=== PATIENT | female | born 1970 | race Caucasian/White ===

== ENCOUNTER → 2021-01-12 | Outpatient (CLI) | payer OTHER | LOC: PET 08:00 | PROVIDERS: ATTEND Obstetrics & Gynecology Gynecologic Oncology | DX: C51.9 Malignant neoplasm of vulva, unspecified (principal) | CPT/HCPCS: 78815; A9552 ==

== ENCOUNTER → 2021-01-30 | Day surgery (SDC) | payer OTHER | LOC: SPEC 12:54 | PROVIDERS: ATTEND Nurse Practitioner Family | PROC: 02HV33Z Insertion of Infusion Device into Superior Vena Cava, Percutaneous Approach (ICD-10-PCS; principal; 2021-01-30) | DX: C51.0 Malignant neoplasm of labium majus (principal) | CPT/HCPCS: 36569; C1751 ==

== ENCOUNTER 2021-07-06 11:00 | Outpatient (CLI) | payer OTHER | END 2021-07-06 11:01 | disposition home or self-care (01) | LOC: PET 11:00 | PROVIDERS: ATTEND Obstetrics & Gynecology Gynecologic Oncology | DX: C51.0 Malignant neoplasm of labium majus (principal); C77.8 Secondary and unspecified malignant neoplasm of lymph nodes of multiple regions | CPT/HCPCS: 78815; A9552 ==

== ENCOUNTER 2021-09-06 10:45 | Inpatient (IN) | payer OTHER ==
[2021-09-06] MEDS ORDERED: Iopamidol-370 76% 500 ML 1 ML ONE (11:14)
[2021-09-06] MEDS ORDERED: Morphine 4 MG/ML VIAL ONE (11:49)
[2021-09-06] MEDS ORDERED: Piperacillin/Tazobactam 3.375 GM VIAL ONE (11:50)
[2021-09-06 12:00] LABS: #Lymphocytes 0.5 thou/uL (1.20-3.40); #Monocytes 0.1 thou/uL (0.11-0.59); #Neutrophils 8.5 thou/uL (1.40-6.50); %Eosinophils 0.2 % (0.0-10.0); %Monocytes 1.1 % (0.0-10.0); %Neutrophils 93.7 % (42.0-75.0); Hemoglobin 9.2 g/dL (12.0-16.0); Mean Corpuscular HGB CONC 32.6 g/dL (32.0-36.0); Mean Corpuscular Hemoglobin 27.2 pg (27.0-31.0); Mean Corpuscular Volume 83.2 fL (78.0-98.0); Mean Platelet Volume 7.6 fL (7.4-10.4); Platelet Count 273 thou/uL (130-400); RBC Distribution Width 18.1 % (11.5-14.5); Red Blood Cell (RBC) Count 3.38 mill/uL (4.20-5.40); White Blood Cell (WBC) Count 9.1 thou/uL (4.8-10.8)
[2021-09-06] MEDS ORDERED: METRONIDAZOLE IVPB SCH (12:15)
[2021-09-06 12:22] LABS: ALT (SGPT) 8 U/L (8-55); AST (SGOT) 11 U/L (5-34); Albumin 3.5 g/dL (3.5-5.0); Alkaline Phosphatase 67 U/L (40-110); Anion Gap 18 mmol/L (10-20); BUN (Urea Nitrogen) 31 mg/dL (9.8-20.1); Bilirubin, Total 0.6 mg/dL (0.2-1.2); CK (CPK) 25 U/L (29-168); Calc. Creatinine Clearance 0 mL/min (70-130); Calcium 9.3 mg/dL (7.8-10.44); Carbon Dioxide 22 mmol/L (22-29); Chloride 103 mmol/L (98-107); Estimated GFR 75; Globulin 4.3 g/dL (2.4-3.5); Glucose 136 mg/dL (70-105); Lipase 64 U/L (8-78); Potassium 3.8 mmol/L (3.5-5.1); Protein, Total 7.8 g/dL (6.0-8.3); Sodium 139 mmol/L (136-145)
[2021-09-06] MEDS ORDERED: metroNIDAZOLE 500 MG in Premix Bag 1 BAG IVPB SCH (13:45)
[2021-09-06 15:41] LABS: Bacteria/HPF None Seen HPF (None Seen); Bilirubin Negative (Negative); Blood, Urine Negative (Negative); Clarity Clear (Clear); Glucose, Urine (Dipstick) Normal (Negative); Ketone, Urine Negative (Negative); Leukocyte 500 Leu/uL (Negative); Nitrite Negative (Negative); Protein, Urine (Dipstick) Negative (Neg-Trace); RBC/HPF 0-3 HPF (0-3); Specific Gravity, Urine 1.023 (1.002-1.036); Squamous Epithelial 0-3 HPF (0-3); Urobilinogen Normal mg/dL (Less than 2); pH, Urine 5.5 (5.0-9.0)
[2021-09-06] MEDS ORDERED: Dextrose 50% Abboject 50 ML SYRINGE SLOW IVP PRN (16:46)
[2021-09-06] MEDS ORDERED: HumaLOG 300 UNITS/3 ML VIAL SC PRN ×3 (16:46→21:02)
[2021-09-06] MEDS ORDERED: Dextrose 5% in Water 1,000 ML IV PRN ×2 (16:46→21:01)
[2021-09-06] MEDS ORDERED: Senokot S 8.6-50 MG TAB PO PRN (16:48)
[2021-09-06] MEDS ORDERED: Ondansetron PF 4 MG/2 ML Vial IVP PRN ×2 (16:48→21:02)
[2021-09-06] MEDS ORDERED: HYDROcodone/Acetaminophen 5/325 mg Tablet PO PRN (16:48)
[2021-09-06] MEDS ORDERED: Ondansetron ODT 4 MG TAB PO PRN ×2 (16:48→21:02)
[2021-09-06] MEDS ORDERED: cefTRIAXone\\ROCEPHIN 2 GM in Sodium Chloride 0.9% 100 ML IVPB SCH (18:00)
[2021-09-06] MEDS: Sodium Chloride 0.9% 1,000 ML IV SCH (18:50)
[2021-09-06 19:05] VITALS: BMI 32.8
[2021-09-06] MEDS ORDERED: Vancomycin 1 GM in Premix Bag 1 BAG IVPB SCH (21:00)
[2021-09-06] MEDS ORDERED: Famotidine 20 MG TAB PO SCH (21:00)
[2021-09-06] MEDS: cefTRIAXone\\ROCEPHIN 2 GM in Sodium Chloride 0.9% 100 ML IVPB SCH (21:27)
[2021-09-06] MEDS: Vancomycin 1.5 GRAM/300 ML BAG 1.5 GM in Premix Bag 300 BAG IVPB SCH (21:30)
[2021-09-06] MEDS: Famotidine 20 MG TAB PO SCH (21:31)
[2021-09-07] MEDS: HYDROcodone/Acetaminophen 5/325 mg Tablet PO PRN ×3 (02:09→20:31)
[2021-09-07 03:07] LABS: SARS-CoV-2 NAA Rapid Test Not Detected (NotDetected)
[2021-09-07] MEDS: Sodium Chloride 0.9% 1,000 ML IV SCH ×3 (04:32→15:25)
[2021-09-07] MEDS: HumaLOG 300 UNITS/3 ML VIAL SC PRN ×2 (05:58→12:23)
[2021-09-07] MEDS: Famotidine 20 MG TAB PO SCH ×2 (08:29→20:30)
[2021-09-07] MEDS ORDERED: Famotidine 20 MG TAB PO SCH (09:00)
[2021-09-07] MEDS: Vancomycin 1.5 GRAM/300 ML BAG 1.5 GM in Premix Bag 300 BAG IVPB SCH ×2 (09:18→20:41)
[2021-09-07] MEDS ORDERED: Propofol 500 MG/50 ML VIAL ONE (15:07)
[2021-09-07] MEDS ORDERED: fentaNYL Citrate/PF 100 MCG/2 ML SYRINGE ONE (15:20)
[2021-09-07] MEDS ORDERED: Phenylephrine 10 MG/ML VIAL ONE (15:20)
[2021-09-07] MEDS ORDERED: CEFAZOLIN 2 GM VIAL ONE (15:40)
[2021-09-07] MEDS ORDERED: Sodium Chloride 0.9% 100 ML ONE (15:40)
[2021-09-07] MEDS ORDERED: Lidocaine 1% PF 5 ML VIAL ONE (15:51)
[2021-09-07] MEDS ORDERED: Succinylcholine 200 MG/10 ml SYRINGE FS ONE (15:51)
[2021-09-07] MEDS ORDERED: PROPOFOL 200 MG/20 ML VIAL ONE (15:51)
[2021-09-07] MEDS ORDERED: Ondansetron PF 4 MG/2 ML Vial ONE (15:51)
[2021-09-07] MEDS ORDERED: Lidocaine 1% w/Epinephrine 1:100K 20 ML VIAL ONE (16:07)
[2021-09-07] MEDS ORDERED: Bupivacaine 0.25% HCL 30 ML VIAL ONE (16:07)
[2021-09-07] MEDS ORDERED: Fentanyl 100 MCG/2 ML VIAL ONE (16:36)
[2021-09-07] MEDS: cefTRIAXone\\ROCEPHIN 2 GM in Sodium Chloride 0.9% 100 ML IVPB SCH (20:32)
[2021-09-08] MEDS: HYDROcodone/Acetaminophen 5/325 mg Tablet PO PRN ×3 (00:34→09:24)
[2021-09-08 06:56] LABS: #Eosinphils 0.1 thou/uL (0.0-0.7); #Lymphocytes 0.4 thou/uL (1.20-3.40); #Monocytes 0.1 thou/uL (0.11-0.59); #Neutrophils 4.5 thou/uL (1.40-6.50); %Eosinophils 1.4 % (0.0-10.0); %Lymphocytes 8.3 % (21.0-51.0); %Monocytes 1.3 % (0.0-10.0); Hemoglobin 7.5 g/dL (12.0-16.0); Mean Corpuscular HGB CONC 31.9 g/dL (32.0-36.0); Mean Corpuscular Hemoglobin 26.9 pg (27.0-31.0); Mean Corpuscular Volume 84.4 fL (78.0-98.0); Mean Platelet Volume 7.3 fL (7.4-10.4); Platelet Count 193 thou/uL (130-400); RBC Distribution Width 18.1 % (11.5-14.5); Red Blood Cell (RBC) Count 2.79 mill/uL (4.20-5.40); White Blood Cell (WBC) Count 5.1 thou/uL (4.8-10.8)
[2021-09-08 06:57] LABS: Hemoglobin A1c 7.1 % (4.0-6.0)
[2021-09-08 07:11] LABS: Anion Gap 12 mmol/L (10-20); BUN (Urea Nitrogen) 16 mg/dL (9.8-20.1); Calc. Creatinine Clearance 133 mL/min (70-130); Calcium 8.6 mg/dL (7.8-10.44); Carbon Dioxide 24 mmol/L (22-29); Chloride 104 mmol/L (98-107); Estimated GFR 87; Glucose 177 mg/dL (70-105); Magnesium 1.3 mg/dL (1.6-2.6); Phosphorus 2.5 mg/dL (2.3-4.7); Potassium 3.9 mmol/L (3.5-5.1); Sodium 136 mmol/L (136-145)
[2021-09-08 07:14] LABS: Vancomycin, Trough 19.2 ug/mL
[2021-09-08] MEDS ORDERED: Lisinopril/Hydrochlorothiazide 10 mg/12.5 mg Tablet PO SCH (09:00)
[2021-09-08] MEDS: Vancomycin 1.5 GRAM/300 ML BAG 1.5 GM in Premix Bag 300 BAG IVPB SCH (09:25)
[2021-09-08] MEDS: Famotidine 20 MG TAB PO SCH (09:28)
[2021-09-08 11:49] VITALS: BP 137/85; TEMP 98.8
[2021-09-08 13:32] LABS: Hemoglobin 7.8 g/dL (12.0-16.0)
== END 2021-09-08 15:35 | disposition home or self-care (01) | DRG 572 ==
LOC: ERS 10:45 → SURG B 17:23 → ERS 18:11
PROVIDERS: ADMIT Internal Medicine; ATTEND Internal Medicine
PROC: 0JBL0ZZ Excision of Right Upper Leg Subcutaneous Tissue and Fascia, Open Approach (ICD-10-PCS; principal; 2021-09-07)
DX: L02.214 Cutaneous abscess of groin (principal); Z20.822 Contact with and (suspected) exposure to COVID-19; L03.314 Cellulitis of groin; C51.9 Malignant neoplasm of vulva, unspecified; I10 Essential (primary) hypertension; E11.9 Type 2 diabetes mellitus without complications; D63.8 Anemia in other chronic diseases classified elsewhere; D64.81 Anemia due to antineoplastic chemotherapy; T45.1X5A Adverse effect of antineoplastic and immunosuppressive drugs, initial encounter; E83.42 Hypomagnesemia; E83.39 Other disorders of phosphorus metabolism; E87.6 Hypokalemia; E66.01 Morbid (severe) obesity due to excess calories; F32.A Depression, unspecified; Z79.899 Other long term (current) drug therapy; Z79.4 Long term (current) use of insulin; Z82.49 Family history of ischemic heart disease and other diseases of the circulatory system; Z84.1 Family history of disorders of kidney and ureter; Z80.6 Family history of leukemia; Z68.32 Body mass index [BMI] 32.0-32.9, adult
CPT/HCPCS: 36415; 36416; 74177; 80048; 80053; 80202; 81003; 81015; 82550; 83036; 83605; 83690; 83735; 84100; 85025; 87040; 87070; 87076; 87086; 87205; 96365; 96367; 96375; J0690; J0696; J1642; J1815; J2270; J2370; J2405; J2543; J2704; J3010; J3370; J3490; J7050; Q9967; S0020; U0002

== ENCOUNTER 2021-09-14 08:45 | Outpatient (CLI) | payer OTHER | END 2021-09-14 08:46 | disposition home or self-care (01) | LOC: PET 08:45 | PROVIDERS: ATTEND Obstetrics & Gynecology Gynecologic Oncology | DX: C51.9 Malignant neoplasm of vulva, unspecified (principal); C77.8 Secondary and unspecified malignant neoplasm of lymph nodes of multiple regions | CPT/HCPCS: 78815; A9552 ==

== ENCOUNTER 2021-10-20 16:38 | Emergency (ER) | payer OTHER ==
[~2021-10-20 16:38] MED LIST: Iopamidol-370 76% 500 ML 1 ML ONE
[2021-10-20] MEDS ORDERED: Morphine 2 MG/ML VIAL ONE ×2 (17:10→19:00)
[2021-10-20] MEDS ORDERED: Morphine 4 MG/ML VIAL ONE ×2 (17:10→19:00)
[2021-10-20] MEDS ORDERED: Ondansetron PF 4 MG/2 ML Vial ONE (17:34)
[2021-10-20 17:47] LABS: #Eosinphils 0.1 thou/uL (0.0-0.7); #Lymphocytes 0.5 thou/uL (1.20-3.40); #Monocytes 0.1 thou/uL (0.11-0.59); #Neutrophils 5.7 thou/uL (1.40-6.50); %Eosinophils 1.4 % (0.0-10.0); %Lymphocytes 7.6 % (21.0-51.0); %Monocytes 0.8 % (0.0-10.0); %Neutrophils 90.2 % (42.0-75.0); Hemoglobin 9.5 g/dL (12.0-16.0); Mean Corpuscular HGB CONC 34.1 g/dL (32.0-36.0); Platelet Count 268 thou/uL (130-400); RBC Distribution Width 16.6 % (11.5-14.5); Red Blood Cell (RBC) Count 3.29 mill/uL (4.20-5.40); White Blood Cell (WBC) Count 6.4 thou/uL (4.8-10.8)
[2021-10-20 18:05] LABS: ALT (SGPT) 7 U/L (8-55); AST (SGOT) 10 U/L (5-34); Albumin 3.6 g/dL (3.5-5.0); Alkaline Phosphatase 66 U/L (40-110); Anion Gap 16 mmol/L (10-20); BUN (Urea Nitrogen) 24 mg/dL (9.8-20.1); Bilirubin, Total 0.7 mg/dL (0.2-1.2); Calc. Creatinine Clearance 0 mL/min (70-130); Calcium 9.5 mg/dL (7.8-10.44); Carbon Dioxide 24 mmol/L (22-29); Chloride 97 mmol/L (98-107); Estimated GFR 63; Globulin 4.5 g/dL (2.4-3.5); Glucose 153 mg/dL (70-105); Potassium 3.6 mmol/L (3.5-5.1); Protein, Total 8.1 g/dL (6.0-8.3); Sodium 133 mmol/L (136-145)
[2021-10-20] MEDS ORDERED: Azithromycin 250 MG TAB ONE (19:00)
[2021-10-20] MEDS ORDERED: cefTRIAXone\\ROCEPHIN 1 GM VIAL ONE (19:00)
== END 2021-10-20 19:33 | disposition home or self-care (01) ==
LOC: ERS 16:38
DX: C52 Malignant neoplasm of vagina (principal); N89.8 Other specified noninflammatory disorders of vagina; E11.9 Type 2 diabetes mellitus without complications; I10 Essential (primary) hypertension; Z79.899 Other long term (current) drug therapy; Z79.4 Long term (current) use of insulin
CPT/HCPCS: 74177; 80053; 85025; 94760; 96374; 96375; 96376; J0696; J1642; J2270; J2405; Q9967

== ENCOUNTER 2021-10-22 00:52 | Emergency (ER) | payer OTHER | END 2021-10-22 01:42 | disposition left against medical advice (07) | LOC: ERS 00:52 | DX: Z53.21 Procedure and treatment not carried out due to patient leaving prior to being seen by health care provider (principal) ==

== ENCOUNTER 2022-01-05 10:10 | Inpatient (IN) | payer OTHER ==
[2022-01-05] MEDS ORDERED: Iopamidol-370 76% 500 ML 1 ML ONE (10:33)
[2022-01-05 10:44] LABS: Hemoglobin 6.6 g/dL (12.0-16.0); Mean Corpuscular Hemoglobin 23.9 pg (27.0-31.0); Red Blood Cell (RBC) Count 2.75 mill/uL (4.20-5.40); White Blood Cell (WBC) Count 14.2 thou/uL (4.8-10.8)
[2022-01-05 11:03] LABS: ALT (SGPT) 39 U/L (8-55); AST (SGOT) 37 U/L (5-34); Albumin 3.2 g/dL (3.5-5.0); Alkaline Phosphatase 229 U/L (40-110); Anion Gap 18 mmol/L (10-20); BUN (Urea Nitrogen) 15 mg/dL (9.8-20.1); Bilirubin, Total 1.3 mg/dL (0.2-1.2); Calc. Creatinine Clearance 0 mL/min (70-130); Calcium 10.3 mg/dL (7.8-10.44); Carbon Dioxide 23 mmol/L (22-29); Chloride 96 mmol/L (98-107); Estimated GFR 63; Globulin 6.1 g/dL (2.4-3.5); Glucose 217 mg/dL (70-105); Lipase 9 U/L (8-78); Potassium 4.5 mmol/L (3.5-5.1); Protein, Total 9.3 g/dL (6.0-8.3); Sodium 132 mmol/L (136-145)
[2022-01-05 11:48] LABS: #Eosinphils 0.1 thou/uL (0.0-0.7); #Lymphocytes 1.1 thou/uL (1.20-3.40); #Monocytes 0.9 thou/uL (0.11-0.59); #Neutrophils 12.1 thou/uL (1.40-6.50); %Basophils 0.3 % (0.0-1.0); %Eosinophils 0.5 % (0.0-10.0); %Lymphocytes 7.5 % (21.0-51.0); %Monocytes 6.3 % (0.0-10.0); %Neutrophils 85.4 % (42.0-75.0); Hypochromia SLIGHT = 6-15 cells (100X) (0-5/hpf); MDiff Complete? YES; Mean Corpuscular HGB CONC 29.2 g/dL (32.0-36.0); Mean Platelet Volume 6.4 fL (7.4-10.4); Platelet Count 593 thou/uL (130-400); Platelet Morphology Comment Appears Increased; RBC Distribution Width 18.9 % (11.5-14.5); Target Cells SLIGHT = 2-5 cells (100X) (0-1/hpf)
[2022-01-05] MEDS ORDERED: Ondansetron PF 4 MG/2 ML Vial ONE (12:13)
[2022-01-05] MEDS ORDERED: Morphine 4 MG/ML VIAL ONE (12:13)
[2022-01-05] MEDS ORDERED: Cefepime 2 GM VIAL ONE (13:34)
[2022-01-05] MEDS ORDERED: Vancomycin 1 GM/200 ML BAG ONE (13:35)
[2022-01-05 14:33] LABS: Bilirubin Negative (Negative); Blood, Urine Negative (Negative); Clarity Clear (Clear); Glucose, Urine (Dipstick) Normal (Negative); Ketone, Urine Negative (Negative); Leukocyte Negative Leu/uL (Negative); Nitrite Negative (Negative); Protein, Urine (Dipstick) 10 mg/dL (Neg-Trace); Specific Gravity, Urine 1.043 (1.002-1.036); Urobilinogen Normal mg/dL (Less than 2)
[2022-01-05 15:05] LABS: SARS-CoV-2 NAA Rapid Test Not Detected (NotDetected)
[2022-01-05] MEDS ORDERED: Ondansetron ODT 4 MG TAB SL PRN (15:30)
[2022-01-05] MEDS ORDERED: Ondansetron PF 4 MG/2 ML Vial IVP PRN (15:30)
[2022-01-05] MEDS ORDERED: Dextrose 50% Abboject 50 ML SYRINGE SLOW IVP PRN (15:58)
[2022-01-05] MEDS ORDERED: Insulin Regular 300 UNITS/3 ML VIAL SC PRN (15:58)
[2022-01-05] MEDS ORDERED: Acetaminophen 325 MG TAB PO PRN (15:58)
[2022-01-05] MEDS ORDERED: Acetaminophen 650 MG Suppository PR PRN (15:58)
[2022-01-05] MEDS ORDERED: Dextrose 5% in Water 1,000 ML IV PRN (15:58)
[2022-01-05 16:08] VITALS: BMI 28.7
[2022-01-05] MEDS ORDERED: Vancomycin 1 GM in Premix Bag 1 BAG IVPB SCH (16:30)
[2022-01-05] MEDS: Sodium Chloride 0.9% 1,000 ML IV SCH (17:00)
[2022-01-05] MEDS: Insulin Glargine 30 UNITS/0.3 ML VIAL SC SCH (20:57)
[2022-01-05] MEDS: Morphine 4 MG/ML VIAL SLOW IVP PRN (21:06)
[2022-01-05 21:33] LABS: Hemoglobin 6.5 g/dL (12.0-16.0)
[2022-01-05 23:16] LABS: Hemoglobin 6.4 g/dL (12.0-16.0); Platelet Count 474 thou/uL (130-400)
[2022-01-06] MEDS: Cefepime 2 GM in Sodium Chloride 0.9% 100 ML IVPB SCH ×2 (02:14→13:30)
[2022-01-06] MEDS: VANCOMYCIN 1.25 GM/250 ML BAG 1.25 GM in Premix Bag 1 BAG IVPB SCH ×2 (03:21→15:11)
[2022-01-06 06:23] LABS: #Eosinphils 0.1 thou/uL (0.0-0.7); #Lymphocytes 0.6 thou/uL (1.20-3.40); #Monocytes 0.8 thou/uL (0.11-0.59); #Neutrophils 11.5 thou/uL (1.40-6.50); %Basophils 0.1 % (0.0-1.0); %Eosinophils 0.6 % (0.0-10.0); %Monocytes 5.8 % (0.0-10.0); %Neutrophils 88.5 % (42.0-75.0); Hemoglobin 7.7 g/dL (12.0-16.0); Mean Corpuscular HGB CONC 30.9 g/dL (32.0-36.0); Mean Corpuscular Hemoglobin 26.1 pg (27.0-31.0); Mean Corpuscular Volume 84.3 fl (78.0-98.0); Mean Platelet Volume 6.4 fL (7.4-10.4); Platelet Count 528 thou/uL (130-400); RBC Distribution Width 17.6 % (11.5-14.5); Red Blood Cell (RBC) Count 2.94 mill/uL (4.20-5.40)
[2022-01-06 06:46] LABS: Anion Gap 13 mmol/L (10-20); BUN (Urea Nitrogen) 11 mg/dL (9.8-20.1); Calc. Creatinine Clearance 112 mL/min (70-130); Carbon Dioxide 21 mmol/L (22-29); Chloride 102 mmol/L (98-107); Estimated GFR 84; Glucose 182 mg/dL (70-105); Potassium 4.4 mmol/L (3.5-5.1); Sodium 132 mmol/L (136-145)
[2022-01-06 08:32] LABS: Hemoglobin 7.7 g/dL (12.0-16.0)
[2022-01-06] MEDS: Morphine 4 MG/ML VIAL SLOW IVP PRN ×3 (08:36→20:07)
[2022-01-06] MEDS: Enoxaparin Sodium 40 MG/0.4 ML SYRINGE SC SCH (08:36)
[2022-01-06] MEDS: Sodium Chloride 0.9% 1,000 ML IV SCH ×3 (08:37→23:12)
[2022-01-06] MEDS ORDERED: FLU VACC QS2022-23(6MOS UP)/PF 60 MCG/0.5 ML SYRINGE IM ONE (09:00)
[2022-01-06] MEDS ORDERED: Prevnar 13-Val Conj/PF 0.5 ML SYRINGE IM ONE (09:00)
[2022-01-06] MEDS: Insulin Glargine 30 UNITS/0.3 ML VIAL SC SCH (20:07)
[2022-01-07] MEDS: Morphine 4 MG/ML VIAL SLOW IVP PRN ×3 (01:56→21:27)
[2022-01-07] MEDS: Cefepime 2 GM in Sodium Chloride 0.9% 100 ML IVPB SCH (01:57)
[2022-01-07] MEDS: Sodium Chloride 0.9% 1,000 ML IV SCH (01:57)
[2022-01-07] MEDS ORDERED: Morphine 4 MG/ML VIAL SLOW IVP SCH (02:45)
[2022-01-07 02:56] LABS: #Eosinphils 0.1 thou/uL (0.0-0.7); #Lymphocytes 0.6 thou/uL (1.20-3.40); #Monocytes 0.8 thou/uL (0.11-0.59); #Neutrophils 10.1 thou/uL (1.40-6.50); %Lymphocytes 5.5 % (21.0-51.0); %Monocytes 6.9 % (0.0-10.0); %Neutrophils 86.5 % (42.0-75.0); Hemoglobin 6.3 g/dL (12.0-16.0); Mean Corpuscular HGB CONC 29.8 g/dL (32.0-36.0); Mean Corpuscular Hemoglobin 24.9 pg (27.0-31.0); Mean Corpuscular Volume 83.6 fl (78.0-98.0); Mean Platelet Volume 6.3 fL (7.4-10.4); Platelet Count 403 thou/uL (130-400); RBC Distribution Width 17.6 % (11.5-14.5); Red Blood Cell (RBC) Count 2.54 mill/uL (4.20-5.40); White Blood Cell (WBC) Count 11.6 thou/uL (4.8-10.8)
[2022-01-07 03:07] LABS: Vancomycin, Trough 17.2 ug/mL
[2022-01-07 03:21] LABS: Anion Gap 13 mmol/L (10-20); BUN (Urea Nitrogen) 10 mg/dL (9.8-20.1); Calc. Creatinine Clearance 122 mL/min (70-130); Calcium 8.7 mg/dL (7.8-10.44); Carbon Dioxide 19 mmol/L (22-29); Chloride 104 mmol/L (98-107); Estimated GFR 93; Glucose 160 mg/dL (70-105); Potassium 4.1 mmol/L (3.5-5.1); Sodium 132 mmol/L (136-145)
[2022-01-07] MEDS: VANCOMYCIN 1.25 GM/250 ML BAG 1.25 GM in Premix Bag 1 BAG IVPB SCH (03:33)
[2022-01-07] MEDS: Enoxaparin Sodium 40 MG/0.4 ML SYRINGE SC SCH (09:15)
[2022-01-07] MEDS ORDERED: HYDROcodone/Acetaminophen 5/325 mg Tablet PO PRN (10:01)
[2022-01-07] MEDS: Insulin Regular 300 UNITS/3 ML VIAL SC PRN (12:27)
[2022-01-07] MEDS: HYDROcodone/Acetaminophen 5/325 mg Tablet PO PRN ×2 (16:35→23:56)
[2022-01-07] MEDS: Insulin Glargine 30 UNITS/0.3 ML VIAL SC SCH (21:24)
[2022-01-08] MEDS: HYDROcodone/Acetaminophen 5/325 mg Tablet PO PRN ×3 (06:27→18:16)
[2022-01-08 06:46] LABS: Anion Gap 12 mmol/L (10-20); BUN (Urea Nitrogen) 8 mg/dL (9.8-20.1); Calc. Creatinine Clearance 133 mL/min (70-130); Calcium 8.9 mg/dL (7.8-10.44); Carbon Dioxide 21 mmol/L (22-29); Chloride 104 mmol/L (98-107); Estimated GFR 102; Glucose 152 mg/dL (70-105); Potassium 3.9 mmol/L (3.5-5.1); Sodium 133 mmol/L (136-145)
[2022-01-08 06:54] LABS: #Eosinphils 0.1 thou/uL (0.0-0.7); #Lymphocytes 0.7 thou/uL (1.20-3.40); #Monocytes 0.7 thou/uL (0.11-0.59); #Neutrophils 9.4 thou/uL (1.40-6.50); %Basophils 0.2 % (0.0-1.0); %Eosinophils 1.1 % (0.0-10.0); %Monocytes 6.2 % (0.0-10.0); %Neutrophils 86.6 % (42.0-75.0); Hemoglobin 7.6 g/dL (12.0-16.0); Mean Corpuscular HGB CONC 30.2 g/dL (32.0-36.0); Mean Corpuscular Hemoglobin 25.6 pg (27.0-31.0); Mean Corpuscular Volume 84.8 fl (78.0-98.0); Mean Platelet Volume 6.5 fL (7.4-10.4); Platelet Count 477 thou/uL (130-400); Red Blood Cell (RBC) Count 2.96 mill/uL (4.20-5.40); White Blood Cell (WBC) Count 10.9 thou/uL (4.8-10.8)
[2022-01-08 08:34] VITALS: TEMP 98.5
[2022-01-08 12:28] VITALS: BP 117/69
[2022-01-08] MEDS: Insulin Regular 300 UNITS/3 ML VIAL SC PRN ×2 (12:43→18:20)
== END 2022-01-08 19:40 | disposition home or self-care (01) | DRG 872 ==
LOC: ERS 10:10 → T4-B 13:48
PROVIDERS: ADMIT Family Medicine; ATTEND Family Medicine
PROC: 3E03329 Introduction of Other Anti-infective into Peripheral Vein, Percutaneous Approach (ICD-10-PCS; principal; 2022-01-05)
PROC: 30233N1 Transfusion of Nonautologous Red Blood Cells into Peripheral Vein, Percutaneous Approach (ICD-10-PCS; 2022-01-05)
DX: A41.9 Sepsis, unspecified organism (principal); C77.9 Secondary and unspecified malignant neoplasm of lymph node, unspecified; E87.1 Hypo-osmolality and hyponatremia; E11.9 Type 2 diabetes mellitus without complications; I10 Essential (primary) hypertension; Z20.822 Contact with and (suspected) exposure to COVID-19; C51.9 Malignant neoplasm of vulva, unspecified; F41.9 Anxiety disorder, unspecified; F32.A Depression, unspecified; D64.81 Anemia due to antineoplastic chemotherapy; T45.1X5A Adverse effect of antineoplastic and immunosuppressive drugs, initial encounter; Z79.899 Other long term (current) drug therapy; Z79.4 Long term (current) use of insulin; Z93.3 Colostomy status; Z79.84 Long term (current) use of oral hypoglycemic drugs
CPT/HCPCS: 36415; 36416; 36430; 71045; 74177; 80048; 80053; 80202; 81003; 82550; 83605; 83690; 83880; 84484; 85025; 86850; 86900; 86901; 87040; 87086; 93005; J0692; J1650; J1815; J2270; J2405; J3370; J3490; J7050; P9016; Q9967

== ENCOUNTER 2022-01-15 10:15 | Outpatient (CLI) | payer OTHER | END 2022-01-15 10:16 | LOC: PET 10:15 | PROVIDERS: ATTEND Obstetrics & Gynecology Gynecologic Oncology | DX: C51.0 Malignant neoplasm of labium majus (principal); C78.7 Secondary malignant neoplasm of liver and intrahepatic bile duct | CPT/HCPCS: 78815; A9552 ==

== ENCOUNTER 2022-03-16 03:59 | Inpatient (IN) | payer OTHER ==
[2022-03-16] MEDS ORDERED: Vancomycin 1 GM/200 ML (FROZEN) BAG ONE (04:42)
[2022-03-16] MEDS ORDERED: cefTRIAXone\\ROCEPHIN 2 GM VIAL ONE (04:42)
[2022-03-16 06:12] LABS: Hemoglobin 4.3 g/dL (12.0-16.0); Mean Corpuscular HGB CONC 30.4 g/dL (32.0-36.0); Mean Corpuscular Hemoglobin 27.5 pg (27.0-31.0); Mean Corpuscular Volume 90.4 fl (78.0-98.0); Platelet Count 555 10x3/uL (130-400); RBC Distribution Width 16.3 % (11.5-14.5); Red Blood Cell (RBC) Count 1.58 mill/uL (4.20-5.40); White Blood Cell (WBC) Count 58.3 10x3/uL (4.8-10.8)
[2022-03-16 06:18] LABS: ALT (SGPT) 12 U/L (8-55); AST (SGOT) 26 U/L (5-34); Albumin 2.3 g/dL (3.5-5.0); Alkaline Phosphatase 187 U/L (40-110); Anion Gap 16 mmol/L (10-20); BUN (Urea Nitrogen) 29 mg/dL (9.8-20.1); Bilirubin, Total 1.9 mg/dL (0.2-1.2); Calc. Creatinine Clearance 0 mL/min (70-130); Calcium 12.3 mg/dL (7.8-10.44); Carbon Dioxide 23 mmol/L (22-29); Chloride 100 mmol/L (98-107); Estimated GFR 71; Globulin 4.8 g/dL (2.4-3.5); Glucose 299 mg/dL (70-105); Lipase 30 U/L (8-78); Potassium 3.6 mmol/L (3.5-5.1); Protein, Total 7.1 g/dL (6.0-8.3); Sodium 135 mmol/L (136-145)
[2022-03-16 06:23] LABS: Acetaminophen Less than 10.0 mcg/mL (10.0-30.0); Alcohol Less than 10 mg/dL (Less than 10); Magnesium 1.8 mg/dL (1.6-2.6); Salicylate Less than 8.0 mg/dL (15.0-30.0)
[2022-03-16 06:42] LABS: Anisocytosis SLIGHT = 6-15 cells (100X) (0-5/hpf); Band 9 % (5-11); Hypochromia MODERATE=16-30 cells (100X) (0-5/hpf); Lymphocytes 1 % (21-51); MDiff Complete? YES; Monocytes 2 % (0-10); Neutrophil 88 % (42-75); Platelet Morphology Comment Appears Increased; Polychromasia SLIGHT = 2-3 cells (100X) (0-2/hpf); Reflex for Review?? YES; Target Cells SLIGHT = 2-5 cells (100X) (0-1/hpf)
[2022-03-16 06:52] LABS: Bilirubin 1+ (Negative); Blood, Urine Negative (Negative); Clarity Turbid (Clear); Glucose, Urine (Dipstick) 30 mg/dL (Negative); Ketone, Urine Negative (Negative); Leukocyte Negative Leu/uL (Negative); Nitrite Negative (Negative); Protein, Urine (Dipstick) 50 mg/dL (Neg-Trace); RBC/HPF 0-3 HPF (0-3); Specific Gravity, Urine 1.021 (1.002-1.036); Squamous Epithelial 0-3 HPF (0-3); Urobilinogen 6 mg/dL (Less than 2); pH, Urine 5.5 (5.0-9.0)
[2022-03-16 06:59] LABS: Pregnancy Test - Urine (BHCG) POSITIVE (Negative); Pregu Control Background? CLEAR/WHITE (CLR/WHITE); Pregu Control Bar Appear? YES (CONTROL BAR); Specific Gravity 1.021 (1.002-1.036)
[2022-03-16 07:02] LABS: Bacteria/HPF 1+ HPF (None Seen)
[2022-03-16 07:06] LABS: Amphetamine Not Detected (NotDetected); Barbiturates Screen Not Detected (NotDetected); Benzodiazepine Screen Not Detected (NotDetected); Cocaine Metabolite Screen Not Detected (NotDetected); Methadone Not Detected (NotDetected); Methamphetamine Not Detected (NotDetected); Opiate Screen Detected (NotDetected); Oxycodone Screen Not Detected (NotDetected); Phencyclidine (PCP) Not Detected (NotDetected); THC/Cannabinoid Screen Detected (NotDetected); Tricyclic Screen Not Detected (NotDetected)
[2022-03-16 07:28] LABS: SARS-CoV-2 NAA Rapid Test Not Detected (NotDetected)
[2022-03-16] MEDS ORDERED: Iopamidol-370 76% 500 ML 1 ML ONE (10:42)
[2022-03-16 11:26] LABS: Lactic Acid 1.7 mmol/L (0.5-2.2)
[2022-03-16] MEDS ORDERED: HumaLOG 300 UNITS/3 ML VIAL SC PRN ×2 (13:17)
[2022-03-16] MEDS ORDERED: Dextrose 5% in Water 1,000 ML IV PRN (13:17)
[2022-03-16] MEDS ORDERED: Dextrose 50% Abboject 50 ML SYRINGE SLOW IVP PRN (13:17)
[2022-03-16] MEDS ORDERED: Ondansetron PF 4 MG/2 ML Vial IVP PRN (13:20)
[2022-03-16] MEDS ORDERED: Acetaminophen 325 MG TAB PO PRN (13:20)
[2022-03-16] MEDS ORDERED: Ondansetron ODT 4 MG TAB PO PRN (13:20)
[2022-03-16] MEDS ORDERED: Acetaminophen 650 MG Suppository PR PRN (13:20)
[2022-03-16 13:28] LABS: Hemoglobin 5.3 g/dL (12.0-16.0)
[2022-03-16] MEDS ORDERED: Lactated Ringer's 1,000 ML IV SCH (13:30)
[2022-03-16 18:20] VITALS: BMI 24.9
[2022-03-16] MEDS ORDERED: Cefepime 2 GM in Sodium Chloride 0.9% 100 ML IVPB SCH (18:30)
[2022-03-16 18:38] LABS: Hemoglobin 6.3 g/dL (12.0-16.0)
[2022-03-16] MEDS ORDERED: Vancomycin 1.5 GRAM/300 ML BAG 1.5 GM in Premix Bag 1 BAG IVPB SCH (18:45)
[2022-03-16 18:55] LABS: Anion Gap 12 mmol/L (10-20); BUN (Urea Nitrogen) 23 mg/dL (9.8-20.1); Calc. Creatinine Clearance 104 mL/min (70-130); Calcium 11.9 mg/dL (7.8-10.44); Carbon Dioxide 25 mmol/L (22-29); Chloride 101 mmol/L (98-107); Estimated GFR 90; Glucose 233 mg/dL (70-105); Potassium 2.9 mmol/L (3.5-5.1); Sodium 135 mmol/L (136-145)
[2022-03-16] MEDS ORDERED: Furosemide 20 MG/2 ML VIAL SLOW IVP SCH (19:00)
[2022-03-16] MEDS ORDERED: HYDROcodone/Acetaminophen 5/325 mg Tablet PO PRN (21:58)
[2022-03-16] MEDS ORDERED: Morphine 2 MG/ML VIAL SLOW IVP PRN (22:00)
[2022-03-17] MEDS ORDERED: hydrALAZINE 20 MG/ML VIAL SLOW IVP SCH (00:15)
[2022-03-17 01:06] LABS: Hemoglobin 8.1 g/dL (12.0-16.0)
[2022-03-17] MEDS: Cefepime 2 GM in Sodium Chloride 0.9% 100 ML IVPB SCH ×2 (05:14→17:39)
[2022-03-17 05:31] LABS: Magnesium 1.7 mg/dL (1.6-2.6)
[2022-03-17 08:13] LABS: Anion Gap 16 mmol/L (10-20); BUN (Urea Nitrogen) 21 mg/dL (9.8-20.1); Calc. Creatinine Clearance 106 mL/min (70-130); Calcium 11.5 mg/dL (7.8-10.44); Carbon Dioxide 24 mmol/L (22-29); Chloride 101 mmol/L (98-107); Estimated GFR 93; Glucose 222 mg/dL (70-105); Sodium 138 mmol/L (136-145)
[2022-03-17 08:41] LABS: Anisocytosis SLIGHT = 6-15 cells (100X) (0-5/hpf); Band 11 % (5-11); Hemoglobin 8.4 g/dL (12.0-16.0); Hypochromia SLIGHT = 6-15 cells (100X) (0-5/hpf); Lymphocytes 1 % (21-51); MDiff Complete? YES; Mean Corpuscular HGB CONC 31.6 g/dL (32.0-36.0); Mean Corpuscular Hemoglobin 28.6 pg (27.0-31.0); Mean Corpuscular Volume 90.6 fl (78.0-98.0); Mean Platelet Volume 7.7 fL (7.4-10.4); Monocytes 3 % (0-10); Neutrophil 83 % (42-75); Platelet Count 422 10x3/uL (130-400); Platelet Morphology Comment Appears Increased; Polychromasia SLIGHT = 2-3 cells (100X) (0-2/hpf); RBC Distribution Width 16.5 % (11.5-14.5); Reactive Lymphocytes 2 % (0-10); Red Blood Cell (RBC) Count 2.93 mill/uL (4.20-5.40); Target Cells SLIGHT = 2-5 cells (100X) (0-1/hpf); White Blood Cell (WBC) Count 51.2 10x3/uL (4.8-10.8)
[2022-03-17] MEDS ORDERED: FLU VACC QS2022-23(6MOS UP)/PF 60 MCG/0.5 ML SYRINGE IM ONE (09:00)
[2022-03-17] MEDS: VANCOMYCIN 1.25 GM/250 ML BAG 1.25 GM in Premix Bag 1 BAG IVPB SCH ×2 (11:03→19:43)
[2022-03-17] MEDS ORDERED: Magnesium 2 GM/50 ML(in water) 2 GM in Premix Bag 1 BAG IVPB SCH (11:15)
[2022-03-17] MEDS ORDERED: Electrolyte Replacement Protocol 1 EACH FS SCH (11:15)
[2022-03-17] MEDS ORDERED: Lorazepam 2 MG/ML VIAL SLOW IVP SCH (11:45)
[2022-03-17] MEDS: Potassium Chloride 20 MEQ TAB PO SCH ×2 (13:40→15:53)
[2022-03-17 17:22] LABS: Hemoglobin 8.2 g/dL (12.0-16.0)
[2022-03-17] MEDS: Morphine 4 MG/ML VIAL SLOW IVP PRN ×2 (17:39→21:52)
[2022-03-18 05:38] LABS: Magnesium 2.1 mg/dL (1.6-2.6)
[2022-03-18] MEDS: Cefepime 2 GM in Sodium Chloride 0.9% 100 ML IVPB SCH ×2 (06:02→20:29)
[2022-03-18 07:28] LABS: Vancomycin, Trough 24.5 ug/mL
[2022-03-18] MEDS: Vancomycin 1 GM in Premix Bag 1 BAG IVPB SCH ×2 (09:34→20:26)
[2022-03-19] MEDS: Cefepime 2 GM in Sodium Chloride 0.9% 100 ML IVPB SCH (05:25)
[2022-03-19 09:07] LABS: Hemoglobin 6.7 g/dL (12.0-16.0); Mean Corpuscular HGB CONC 31.1 g/dL (32.0-36.0); Mean Corpuscular Hemoglobin 28.3 pg (27.0-31.0); Mean Corpuscular Volume 90.9 fl (78.0-98.0); Platelet Count 382 10x3/uL (130-400); RBC Distribution Width 16.3 % (11.5-14.5); Red Blood Cell (RBC) Count 2.36 mill/uL (4.20-5.40); White Blood Cell (WBC) Count 47.8 10x3/uL (4.8-10.8)
[2022-03-19 09:23] LABS: Anion Gap 11 mmol/L (10-20); BUN (Urea Nitrogen) 20 mg/dL (9.8-20.1); Calc. Creatinine Clearance 119 mL/min (70-130); Carbon Dioxide 25 mmol/L (22-29); Chloride 106 mmol/L (98-107); Estimated GFR 104; Glucose 163 mg/dL (70-105); Potassium 2.7 mmol/L (3.5-5.1); Sodium 139 mmol/L (136-145)
[2022-03-19 09:29] LABS: Calcium 13.7 mg/dL (7.8-10.44)
[2022-03-19] MEDS: Vancomycin 1 GM in Premix Bag 1 BAG IVPB SCH (09:35)
[2022-03-19 10:04] LABS: Band 9 % (5-11); Hypersemented Neutrophil SLIGHT; Hypochromia SLIGHT = 6-15 cells (100X) (0-5/hpf); Lymphocytes 2 % (21-51); MDiff Complete? YES; Monocytes 4 % (0-10); Neutrophil 85 % (42-75); Platelet Morphology Comment Appears Adequate; Polychromasia SLIGHT = 2-3 cells (100X) (0-2/hpf)
[2022-03-19] MEDS ORDERED: Potassium Chloride 20 MEQ TAB PO SCH (10:15)
[2022-03-19] MEDS: Potassium Chloride 20 MEQ in Premix Bag 1 BAG IVPB SCH ×3 (10:28→16:15)
[2022-03-19] MEDS: Sodium Chloride 0.9% 1,000 ML IV SCH ×2 (10:28→21:28)
[2022-03-19 19:37] LABS: Hemoglobin 7.7 g/dL (12.0-16.0)
[2022-03-19 19:58] LABS: Vancomycin, Trough 22.7 ug/mL
[2022-03-20] MEDS: Sodium Chloride 0.9% 1,000 ML IV SCH (03:24)
[2022-03-20 05:07] LABS: Hemoglobin 7.5 g/dL (12.0-16.0); Mean Corpuscular HGB CONC 30.7 g/dL (32.0-36.0); Mean Corpuscular Hemoglobin 28.2 pg (27.0-31.0); Mean Corpuscular Volume 91.8 fl (78.0-98.0); Mean Platelet Volume 7.3 fL (7.4-10.4); Platelet Count 352 10x3/uL (130-400); RBC Distribution Width 16.1 % (11.5-14.5); Red Blood Cell (RBC) Count 2.67 mill/uL (4.20-5.40); White Blood Cell (WBC) Count 50.9 10x3/uL (4.8-10.8)
[2022-03-20 05:22] LABS: BUN (Urea Nitrogen) 22 mg/dL (9.8-20.1); Calc. Creatinine Clearance 126 mL/min (70-130); Carbon Dioxide 24 mmol/L (22-29); Estimated GFR 106; Glucose 151 mg/dL (70-105)
[2022-03-20 05:28] LABS: Anion Gap 11 mmol/L (10-20); Chloride 109 mmol/L (98-107); Potassium 3.4 mmol/L (3.5-5.1); Sodium 140 mmol/L (136-145)
[2022-03-20 05:31] LABS: Anisocytosis SLIGHT = 6-15 cells (100X) (0-5/hpf); Band 7 % (5-11); Hypochromia SLIGHT = 6-15 cells (100X) (0-5/hpf); Lymphocytes 2 % (21-51); MDiff Complete? YES; Monocytes 4 % (0-10); Neutrophil 87 % (42-75); Platelet Morphology Comment Appears Adequate; Polychromasia SLIGHT = 2-3 cells (100X) (0-2/hpf)
[2022-03-20] MEDS ORDERED: Sodium Chloride 0.9% 1,000 ML IV SCH (05:34)
[2022-03-20] MEDS ORDERED: Potassium Chloride 20 MEQ TAB PO SCH (08:00)
[2022-03-20 16:51] VITALS: BP 144/82; TEMP 99.4
== END 2022-03-20 19:30 | disposition hospice, home (50) | DRG 871 ==
LOC: ERS 03:59 → ERHOLD 09:11 → 2NO 16:49
PROVIDERS: ADMIT Internal Medicine; ATTEND Internal Medicine
PROC: 3E03329 Introduction of Other Anti-infective into Peripheral Vein, Percutaneous Approach (ICD-10-PCS; principal; 2022-03-16)
PROC: 30233N1 Transfusion of Nonautologous Red Blood Cells into Peripheral Vein, Percutaneous Approach (ICD-10-PCS; 2022-03-16)
DX: A41.9 Sepsis, unspecified organism (principal); G93.41 Metabolic encephalopathy; E44.0 Moderate protein-calorie malnutrition; C77.5 Secondary and unspecified malignant neoplasm of intrapelvic lymph nodes; C78.7 Secondary malignant neoplasm of liver and intrahepatic bile duct; Z20.822 Contact with and (suspected) exposure to COVID-19; E83.52 Hypercalcemia; E11.9 Type 2 diabetes mellitus without complications; D63.0 Anemia in neoplastic disease; I10 Essential (primary) hypertension; G89.29 Other chronic pain; C51.9 Malignant neoplasm of vulva, unspecified; Z28.21 Immunization not carried out because of patient refusal; Z68.24 Body mass index [BMI] 24.0-24.9, adult; Z82.49 Family history of ischemic heart disease and other diseases of the circulatory system; Z82.5 Family history of asthma and other chronic lower respiratory diseases; Z83.3 Family history of diabetes mellitus
CPT/HCPCS: 36415; 36416; 36430; 70450; 71045; 71275; 76857; 80048; 80053; 80202; 80306; 80307; 81003; 81015; 81025; 82010; 82140; 83605; 83690; 83735; 84484; 84702; 85014; 85018; 85025; 85060; 86850; 86900; 86901; 87040; 87086; 93005; 96374; 96375; 97139; J0692; J0696; J1940; J2270; J3370; J3370-JW; J3475; J3480; J3490; J7050; P9016; Q9967